=== PATIENT | female | born 1990 | race American Indian/Alaskan Native ===

== ENCOUNTER 2020-01-11 14:16 | Emergency (ER) | payer OTHER ==
[2020-01-11 15:27] VITALS: BP 109/72
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
== END 2020-01-11 22:45 | disposition home or self-care (01) ==
LOC: ED 14:16
DX: Z04.1 Encounter for examination and observation following transport accident (principal); Z53.21 Procedure and treatment not carried out due to patient leaving prior to being seen by health care provider